=== PATIENT | female | born 1970 | race Asian ===

== ENCOUNTER 2022-04-12 16:22 | Outpatient (CLI) | payer OTHER, SELFPAY ==
[2022-04-12 11:22] LABS: Cholesterol* 216 mg/dL (90-199); Triglycerides* 102 mg/dL (40-149)
[2022-04-12 11:23] LABS: HDL Cholesterol* 65 mg/dL (>=50); LDL Cholesterol Calculated 131 mg/dL (<100)
== END 2022-04-12 16:23 | disposition home or self-care (01) ==
PROVIDERS: PCP Family Medicine; Visit Provider Internal Medicine
DX: Z13.6 Encounter for screening for cardiovascular disorders (principal)
CPT/HCPCS: 80061

== ENCOUNTER 2022-06-28 11:18 | Outpatient (CLI) | payer OTHER, SELFPAY ==
--- NOTE | 2022-06-28 11:30 | CRLHL7_ITS ---
For Patients: As a result of the Cures Act, medical imaging exams and procedure reports are released immediately into your electronic medical record. You may view this report before your referring provider. If you have questions, please contact your health care provider. BILATERAL SCREENING MAMMOGRAM WITH COMPUTER-AIDED DETECTION AND TOMOSYNTHESIS TECHNIQUE: CC and MLO views were obtained. These mammographic images have been obtained using full-field digital technique. These mammographic images were interpreted with the benefit of computer-aided detection. Breast Tomosynthesis was used in this interpretation. COMPARISON FILM: Baseline. FINDINGS: The breasts are extremely dense, which lowers the sensitivity of mammography. IMPRESSION: There is no radiographic evidence for malignancy. ASSESSMENT: BI-RADS Category 1: Negative RECOMMENDATION: Routine screening mammogram in 1 year. A lay language report of this examination will be provided to the patient. MUNIR MOSCOSO M.D. Diagnostic/Nuclear Medicine Radiologist [email or web address] MEGHA:[email or web address] Transcribed: 2:20 p.mAj betancourt/Dictated by: Munir Moscoso MD @ 06/28/2022 12:28:00 PM (Electronically Signed)
== END 2022-06-28 11:19 | disposition home or self-care (01) ==
LOC: MAMMO 11:19
PROVIDERS: PCP Family Medicine; Visit Provider Internal Medicine
DX: Z12.31 Encounter for screening mammogram for malignant neoplasm of breast (principal); R92.2 Inconclusive mammogram
CPT/HCPCS: 77063; 77067

== ENCOUNTER 2023-04-12 10:35 | Outpatient (CLI) | payer OTHER, SELFPAY | END 2023-04-12 10:36 | disposition home or self-care (01) | LOC: NFLDREF 10:37 | PROVIDERS: PCP Internal Medicine; Visit Provider Internal Medicine | DX: Z13.6 Encounter for screening for cardiovascular disorders (principal); Z13.1 Encounter for screening for diabetes mellitus | CPT/HCPCS: 80061; 82947 ==

== ENCOUNTER 2024-01-18 11:15 | Outpatient (RCR) | payer OTHER, SELFPAY | END 2024-02-15 15:04 | disposition home or self-care (01) | PROVIDERS: PCP Internal Medicine; Visit Provider Internal Medicine | DX: M67.911 Unspecified disorder of synovium and tendon, right shoulder (principal); M54.2 Cervicalgia; Z51.89 Encounter for other specified aftercare | CPT/HCPCS: 97110; 97140; 97162 ==